=== PATIENT | male | born 1955 | race Caucasian/White ===

== ENCOUNTER 2018-09-26 07:41 | Emergency (ER) | payer MEDICARE ==
[~2018-09-26] VITALS: Ht 167.6 cm; Wt 58.2 kg
[~2018-09-26 07:41] MED LIST: AMLO-218 PO; CARI350T29 PO; CITA10TA10 PO; OXYC5CAP17 PO; SUMA50TA3 PO; TAMS-14 PO; TRAM50TA2 PO; ZALE10CA43 PO
[2018-09-26] MEDS ORDERED: SOD CHLORIDE 0.9% 1,000 ML IV STA (08:01)
[2018-09-26] MEDS ORDERED: ONDANSETRON 4 MG INJ IV STA (08:01)
[2018-09-26] MEDS ORDERED: HYDROmorphONE 1 MG/ML SYG IV STA (08:01)
--- NOTE | 2018-09-26 08:03 | ERD ---
ER Documentation Chief Complaint Chief Complaint ap x/nausea and vomitting x 1hr HPI This is a 63-year-old male here for abdominal pain. He said a few hours ago he had the onset of periumbilical abdominal pain with nausea vomiting is nonbilious and nonbloody. Is also having multiple stools which are solid this morning as well. The pain is coming in waves and are described as sharp and crampy. He has no back pain no lower extremity symptoms no fever no dysuria no hematuria. He said he has a known history of gallstones and this is not like prior gallstone attacks ROS All systems reviewed and are negative except as per history of present illness. Medications Home Meds Reported Medications Amlodipine Besylate* (Norvasc*) 10 Mg Tablet, 10 MG PO DAILY, TAB 04/14/16 Sumatriptan Succinate* (Sumatriptan Succinate*) 50 Mg Tablet, 50 MG PO BID PRN for MIGRAINE HEADACHE, TAB May repeat after 2 hours if needed; MAX 200 mg/24 hours 04/12/16 Carisoprodol* (Carisoprodol*) 350 Mg Tablet, 350 MG PO Q8 PRN for MUSCLE SPASMS, TAB 04/12/16 Oxycodone Hcl* (IR) (Oxycodone Hcl*) 5 Mg Capsule, 20 MG PO TID PRN for PAIN, CAP 04/12/16 Tamsulosin Hcl* (Flomax*) 0.4 Mg Cap.er.24h, 0.4 MG PO HS, CAP 04/12/16 Tramadol HCl (Tramadol HCl) 50 Mg Tablet, 50 MG PO TID PRN for PAIN LEVEL 6-10, #90 TAB 04/12/16 Citalopram Hydrobromide* (Celexa*) 10 Mg Tablet, 10 MG PO DAILY, #30 TAB 04/12/16 Zaleplon (Sonata) 10 Mg Capsule, 10 MG PO HS PRN for INSOMNIA, CAP 04/12/16 Allergies Allergies: Uncoded Allergies: Lactose Intolerance (Adverse Reaction, Intermediate, 04/19/16) PMhx/Soc Anesthesia Reaction: No Hx Neurological Disorder: No (Left Hip Fracture 03/2016 S/P fall) Hx Respiratory Disorders: No Hx Cardiac Disorders: Yes (Hypertension) Hx Psychiatric Problems: No (Depression) Hx Miscellaneous Medical Probl: Yes (L hip fx from mechanical fall) Hx Alcohol Use: No Hx Substance Use: No Hx Tobacco Use: No FmHx Family History: No coronary disease Physical Exam Vitals Vital Signs Date Temp Pulse Resp B/P (MAP) Pulse Ox O2 O2 Flow FiO2 Time Delivery Rate 09/26/18 97.5 76 18 156/89 99 07:44 (111) Physical Exam Const: Well-developed, well-nourished Head: Atraumatic, normocephalic Eyes: Normal Conjunctiva, PERRLA, EOMI, normal sclera, no nystagmus ENT: Normal External Ears, Nose and Mouth, moist mucus membranes. Neck: Full range of motion. No meningismus, no lymphadenopathy. Resp: Clear to auscultation bilaterally, no wheezing, rhonchi, rales Cardio: Regular rate and rhythm, no murmurs, S1 S2 present Abd: Soft, moderate abdominal tenderness diffusely with centralized increased pain, non distended. Normal bowel sounds, no guarding or rebound, no pulsitile abdominal masses or bruits Skin: No petechiae or rashes, no ecchymosis , no maculopapular rash Back: No midline or flank tenderness Ext: No cyanosis, or edema, FROM x 4, normal inspection, neurovascularly intact x 4 Neur: Awake and alert, STR 5/5 x 4, sensation intact x 4, no focal findings, cerebellum intact Psych: Normal Mood and Affect Result Diagram: 09/26/1825 09/26/18 0825 Results 24 hrs Laboratory Tests Test 09/26/18 08:25 White Blood Count 15.0 10^3/ul Red Blood Count 5.58 10^6/ul Hemoglobin 14.6 g/dl Hematocrit 45.8 % Mean Corpuscular Volume 82.1 fl Mean Corpuscular Hemoglobin 26.2 pg Mean Corpuscular Hemoglobin Concent 31.9 g/dl Red Cell Distribution Width 14.8 % Platelet Count 237 10^3/UL Mean Platelet Volume 11.7 fl Immature Granulocytes % 0.300 % Neutrophils % 86.5 % Lymphocytes % 6.4 % Monocytes % 4.4 % Eosinophils % 2.1 % Basophils % 0.3 % Nucleated Red Blood Cells % 0.0 /100WBC Immature Granulocytes # 0.040 10^3/ul Neutrophils # 12.9 10^3/ul Lymphocytes # 1.0 10^3/ul Monocytes # 0.7 10^3/ul Eosinophils # 0.3 10^3/ul Basophils # 0.1 10^3/ul Nucleated Red Blood Cells # 0.0 10^3/ul Sodium Level 144 mmol/L Potassium Level 4.4 mmol/L Chloride Level 104 mmol/L Carbon Dioxide Level 33 mmol/L Anion Gap 7 Blood Urea Nitrogen 17 mg/dl Creatinine 0.80 mg/dl Est Glomerular Filtrat Rate mL/min > 60 mL/min Glucose Level 111 mg/dl Calcium Level 10.2 mg/dl Total Bilirubin 0.1 mg/dl Direct Bilirubin 0.00 mg/dl Indirect Bilirubin 0.1 mg/dl Aspartate Amino Transf (AST/SGOT) 40 IU/L Alanine Aminotransferase (ALT/SGPT) 23 IU/L Alkaline Phosphatase 51 IU/L Total Protein 8.5 g/dl Albumin 5.0 g/dl Globulin 3.50 g/dl Albumin/Globulin Ratio 1.42 Lipase 79 U/L Current Medications Medications Dose Sig/Philippe Start Time Status Last (Trade) Ordered Route PRN Stop Time Admin Dose Reason Admin Sodium 1,000 ml @ Q1H STAT 09/26/18 DC 09/26/18 Chloride 1,000 mls/hr IV 08:01 08:26 09/26/18 09:00 1 mg ONCE STAT 09/26/18 DC 09/26/18 Hydromorphone IV 08:01 08:27 HCl 09/26/18 08:02 (Dilaudid) Ondansetron 4 mg ONCE STAT 09/26/18 DC 09/26/18 HCl (Zofran IV 08:01 08:26 Inj) 09/26/18 08:02 Iohexol 150 ml STK-MED 09/26/18 DC 09/26/18 (Omnipaque ONCE .ROUTE 09:11 09:24 300mg/ ml) 09/26/18 09:12 Sodium 100 ml @ ud STK-MED 09/26/18 DC 09/26/18 Chloride ONCE .ROUTE 09:11 09:24 09/26/18 09:12 Procedures/MDM MR #: [id number] DOS: 09/26/18 08 Ordering MD: DESHAUN ISLAS DO Location: E/R Room/Bed: PROCEDURE: CT abdomen and pelvis with contrast. CLINICAL INDICATION: Abdominal Pain TECHNIQUE: CT scan of the abdomen and pelvis without oral contrast was performed and is reconstructed at 2.5 mm contiguous axial intervals from the dome of the diaphragm to the inferior pubic rami.. The patient was scanned with intravenous contrast. Sagittal and coronal reformatted images were obtained from the axial source images. The calculated radiation dose measures 284 mGy centimeters. The CTDI measures 5 mGy. Individualized dose optimization technique was used for the performance of this exam. This included 1. Automated exposure control. 2. Adjustment of the mA and / or kV according to the patient's size. 3. Use of iterative reconstructed technique. COMPARISON: None. FINDINGS: The lung bases are clear of any infiltrate or nodule. No effusion is seen. The liver is of normal size, contour and attenuation with no mass or ductal dilatation. There are gallstones. There is question edema of the gallbladder wall. No splenic, adrenal or pancreatic abnormalities present. Kidneys enhance symmetrically and are of normal size and contour. No hydronephrosis, calculus or masses seen. Ureters are of normal course and caliber with no stone. No bladder mass or stone is present. Prostate and seminal vesicles are normal. There is no aneurysm. No adenopathy is present. No bowel mass or obstruction is present. There is constipation. The appendix is not confidently visualized, however, no inflamed appendix is seen. The appendix is normal. No phlegmon, ascites or pneumoperitoneum is visualized. There is a left bipolar hip prosthesis. There is L5-S1 degenerative disc narrowing. IMPRESSION: No evidence of urolithiasis, obstructive uropathy or diverticulitis. Nonvisualization appendix. Gallstones. Question gallbladder wall edema. Consider sonographic correlation. Constipation. Left hip prosthesis. Degenerative disease lower lumbar spine. .Bo Padron MD, Date Time Electronically viewed and signed by .Bo Padron MD, MD on 09/26/2018 09:37 .A/ CC: DESHAUN ISLAS DO [id number] Patient has a mild white blood count elevation this may be stress reaction. No acute pathology on CT, he does have gallstones seen on CT however it does not clinically correlate. Liver function tests and bilirubin are normal. This may be some type of GI illness from bad food exposure or viral. No bowel obstruction, the appendix is not seen however there is no right lower quadrant inflammatory changes Will treat the patient symptomatically, gave appendicitis warning precautions Departure Diagnosis: Primary Impression: Abdominal pain Abdominal location: periumbilical Qualified Codes: R10.33 - Periumbilical pain Additional Impression: Vomiting Vomiting type: unspecified Vomiting Intractability: non-intractable Nausea presence: with nausea Qualified Codes: R11.2 - Nausea with vomiting, unspecified Condition: Stable DESHAUN ISLAS DO Sep 26, 2018 08:03
[2018-09-26 08:31] VITALS: Ht 167.6 cm; Wt 58.2 kg
[2018-09-26] MEDS ORDERED: SOD CHLORIDE 0.9% 100 ML ONE (09:11)
[2018-09-26] MEDS ORDERED: IOHEXOL 300MG/ML 150 ML BTL ONE (09:11)
[2018-09-26] MEDS ORDERED: HYDR-3980 PO (09:59)
[2018-09-26] MEDS ORDERED: ONDA8TAB14 PO (10:00)
[2018-09-26] MEDS ORDERED: DICY10CA40 PO (10:00)
[2018-09-26 10:27] VITALS: BP 148/91; PULSE 83; RESP 20
== END 2018-09-26 10:54 | disposition home or self-care (01) ==
LOC: E/R 07:41
DX: R10.33 Periumbilical pain (principal); R40.2142 Coma scale, eyes open, spontaneous, at arrival to emergency department; R40.2362 Coma scale, best motor response, obeys commands, at arrival to emergency department; R40.2252 Coma scale, best verbal response, oriented, at arrival to emergency department; I10 Essential (primary) hypertension
CPT/HCPCS: 36415; 74177; 80053; 83690; 85025; 96374; 96375; 99285; J1170; J2405; J7030; Q9967